=== PATIENT | male | born 1990 | race Caucasian/White ===

== ENCOUNTER 2017-02-03 21:01 | Emergency (ER) | payer SELFPAY ==
[2017-02-03 21:05] VITALS: BP 138/79; PULSE 102; RESP 16; TEMP 98.7; O2SAT 96
== END 2017-02-03 23:24 | disposition left against medical advice (07) ==
LOC: NED 21:01
DX: Z00.8 Encounter for other general examination (principal); Z53.21 Procedure and treatment not carried out due to patient leaving prior to being seen by health care provider
CPT/HCPCS: 99281